=== PATIENT | female | born 1970 | race Hispanic/Latino ===

== ENCOUNTER → 2017-04-10 | Outpatient (CLI) | payer OTHER, MEDICARE | END | disposition home or self-care (01) | LOC: RAH 09:41 | PROVIDERS: ATTEND Internal Medicine Cardiovascular Disease | DX: I10 Essential (primary) hypertension (principal) | CPT/HCPCS: 76770; 93975 ==

== ENCOUNTER 2017-04-26 02:47 | Emergency (ER) | payer OTHER, MEDICARE ==
[2017-04-26] MEDS ORDERED: HYDROCODONE/ACETAMINOPHEN 10/325 MG TAB ONE (03:40)
[2017-04-26] MEDS ORDERED: HYDRALAZINE HCL 25 MG TABLET ONE (03:40)
[2017-04-26 03:41] LABS: BASOPHILS % (AUTO) 0.7 % (0.0-5.0); EOSINOPHILS % (AUTO) 3.1 % (0.0-8.0); HEMATOCRIT 33.4 % (36-48); LYMPHOCYTES % (AUTO) 23.2 % (21.0-51.0); MEAN CORPUSCULAR HGB CONC 34.7 g/dL (32.0-36.0); MEAN CORPUSCULAR VOLUME 83.6 fL (79-99); MONOCYTES % (AUTO) 6.4 % (3.0-13.0); NEUTROPHILS % (AUTO) 66.6 % (40.0-77.0); NUCLEATED RED BLOOD CELLS 0.1 % (0.0-0.19); PLATELET COUNT (AUTO) 254 K/uL (130-400); RED BLOOD CELL COUNT(AUTO) 3.99 MIL/uL (4.00-5.50); RED CELL DISTRIBUTION WIDTH 13.2 % (11.0-15.5); WHITE BLOOD COUNT (AUTO) 12.9 K/uL (4.8-10.8)
[2017-04-26 03:43] LABS: APPEARANCE,URINE Clear (CLEAR); BILIRUBIN,URINE Negative (NEGATIVE); COLOR,URINE Yellow (YELLOW); GLUCOSE, URINE (UA) TRACE mg/dL (NEGATIVE); KETONES,URINE Negative (NEGATIVE); LEUKOCYTE ESTERASE ,URINE Negative (NEGATIVE); NITRATE,URINE Negative (NEGATIVE); OCCULT BLOOD,URINE Negative (NEGATIVE); PH,URINE 6.5 (5.0-8.0); PROTEIN,URINE 300 (NEGATIVE); UROBILINOGEN,URINE 0.2 mg/dL (0.2-1.0)
[2017-04-26 03:48] LABS: AMORPHOUS SEDIMENT,UR Moderate /LPF (None Seen); BACTERIA,URINE Few /HPF (None Seen); MUCUS,URINE Many LPF (None Seen); RBC,URINE 0-1 /HPF (0-1); SQUAMOUS EPITHELIAL CELL,UR Moderate /LPF (0-2); WBC,URINE 0-1 /HPF (0-1)
[2017-04-26 03:53] LABS: CREATININE 2.2 mg/dL (0.5-1.5); POTASSIUM 4.1 mmol/L (3.5-5.1)
[2017-04-26 03:57] LABS: ALBUMIN 2.5 g/dL (3.5-5.0); BILIRUBIN,TOTAL 0.2 mg/dL (0.2-1.0); TOTAL PROTEIN, SERUM 6.4 g/dL (6.0-8.3)
== END 2017-04-26 05:02 | disposition home or self-care (01) ==
LOC: EDH 02:47
DX: R51 Headache (principal); I12.9 Hypertensive chronic kidney disease with stage 1 through stage 4 chronic kidney disease, or unspecified chronic kidney disease; N18.9 Chronic kidney disease, unspecified; J45.909 Unspecified asthma, uncomplicated; Z85.3 Personal history of malignant neoplasm of breast
CPT/HCPCS: 36415; 70450; 80053; 81001; 82550; 84484; 85025; 87804; 93005

== ENCOUNTER → 2017-09-11 | Outpatient (CLI) | payer OTHER, MEDICARE | END | disposition home or self-care (01) | LOC: RAH 15:01 | PROVIDERS: ATTEND Internal Medicine | DX: M54.6 Pain in thoracic spine (principal) | CPT/HCPCS: 72070 ==

== ENCOUNTER → 2018-07-29 | Outpatient (CLI) | payer OTHER, MEDICARE | END | disposition home or self-care (01) | LOC: RAH 13:37 | PROVIDERS: ATTEND Internal Medicine | DX: C50.912 Malignant neoplasm of unspecified site of left female breast (principal) | CPT/HCPCS: 76641 ==

== ENCOUNTER → 2018-10-10 | Outpatient (CLI) | payer OTHER, MEDICARE ==
[~2018-10-10] MED LIST: ALBU18HF7 IH; ASPI-1197 PO; ATOR40TA69 PO; BIMA12.5OS OU; CALC-877 PO; CARV12.580 PO; CHLO50TA PO; CYCL5.5D OU; DOXA4TAB3 PO; DULA0.75 SQ; FERR325T22 PO; FOLI0.4T2 PO; HYDR100T27 PO; INSU100I3 SQ; INSU200I4 SQ; LIDO700A30 TP; LISI40TA4 PO; MUPI22OI2 TP; SULF1TAB42 PO
== END | disposition home or self-care (01) ==
LOC: RAH 07:39
PROVIDERS: ATTEND Internal Medicine
DX: C50.911 Malignant neoplasm of unspecified site of right female breast (principal); Z90.13 Acquired absence of bilateral breasts and nipples
CPT/HCPCS: 77047

== ENCOUNTER → 2020-03-15 | Outpatient (CLI) | payer OTHER | END | disposition home or self-care (01) | LOC: RAH 14:49 | PROVIDERS: ATTEND Internal Medicine Cardiovascular Disease | DX: Z13.6 Encounter for screening for cardiovascular disorders (principal) | CPT/HCPCS: 75571 ==

== ENCOUNTER → 2020-03-17 | Outpatient (CLI) | payer OTHER, MEDICARE | END | disposition home or self-care (01) | LOC: OIH 14:39 | PROVIDERS: ATTEND Internal Medicine Nephrology | DX: J81.1 Chronic pulmonary edema (principal); N18.6 End stage renal disease; E87.79 Other fluid overload; N19 Unspecified kidney failure | CPT/HCPCS: 71046 ==

== ENCOUNTER 2020-05-19 11:25 | Emergency (ER) | payer OTHER, MEDICARE ==
[~2020-05-19 11:25] MED LIST changes: -FOLI0.4T2 PO; +FOLI0.4T6 PO; -LISI40TA4 PO; +LISI40TA9 PO
[2020-05-20] MEDS ORDERED: PHOSLOC PO (22:08)
[2020-05-20] MEDS ORDERED: ACET1TAB25 PO (22:08)
[2020-05-20] MEDS ORDERED: LISI20TA24 PO (22:08)
[2020-05-20] MEDS ORDERED: FOLI0.8T22 PO (22:08)
[2020-05-20] MEDS ORDERED: NYST15CR2 TP (22:08)
[2020-05-20] MEDS ORDERED: FURO40TA5 PO (22:08)
== END 2020-05-19 12:48 | disposition home or self-care (01) ==
LOC: EDH 11:25
DX: I12.0 Hypertensive chronic kidney disease with stage 5 chronic kidney disease or end stage renal disease (principal); E11.22 Type 2 diabetes mellitus with diabetic chronic kidney disease; N18.6 End stage renal disease; R53.1 Weakness; R11.0 Nausea; Z99.2 Dependence on renal dialysis; J45.909 Unspecified asthma, uncomplicated; Z85.3 Personal history of malignant neoplasm of breast; Z98.51 Tubal ligation status; Z98.890 Other specified postprocedural states
CPT/HCPCS: 93005

== ENCOUNTER 2020-05-19 18:20 | Observation (INO) | payer OTHER, MEDICARE ==
[~2020-05-19] VITALS: Ht 157.5 cm; Wt 74.9 kg
[2020-05-19 19:20] LABS: BASOPHILS % (AUTO) 0.4 % (0.0-5.0); EOSINOPHILS % (AUTO) 2.5 % (0.0-8.0); HEMATOCRIT 34.6 % (36-48); LYMPHOCYTES % (AUTO) 25.7 % (21.0-51.0); MEAN CORPUSCULAR HGB CONC 32.7 g/dL (32.0-36.0); MEAN CORPUSCULAR VOLUME 85.9 fL (79-99); MONOCYTES % (AUTO) 7.3 % (3.0-13.0); NEUTROPHILS % (AUTO) 63.7 % (40.0-77.0); NUCLEATED RED BLOOD CELLS 0.4 % (0.0-0.19); PLATELET COUNT (AUTO) 354 K/uL (130-400); RED BLOOD CELL COUNT(AUTO) 4.03 MIL/uL (4.00-5.50); RED CELL DISTRIBUTION WIDTH 15.5 % (11.0-15.5); WHITE BLOOD COUNT (AUTO) 11.3 K/uL (4.8-10.8)
[2020-05-19 19:38] LABS: ALBUMIN 3.7 g/dL (3.5-5.0); BILIRUBIN,TOTAL 0.3 mg/dL (0.2-1.0); POTASSIUM 5.7 mmol/L (3.5-5.1); TOTAL PROTEIN, SERUM 8.1 g/dL (6.0-8.3)
[2020-05-19] MEDS ORDERED: ACETAMINOPHEN 325 MG TAB PO PRN ×2 (22:15)
[2020-05-19] MEDS ORDERED: LACTULOSE 20 GM/30 ML UDCUP PO PRN (22:15)
[2020-05-19] MEDS ORDERED: DiphenhydrAMINE HCL 50 MG/ML VIAL IV PRN (22:15)
[2020-05-19] MEDS ORDERED: DIPHENHYDRAMINE HCL 25 MG CAPSULE PO PRN (22:15)
[2020-05-19] MEDS ORDERED: NITROGLYCERIN 0.4 MG SL TAB SL PRN (22:15)
[2020-05-19] MEDS ORDERED: ONDANSETRON 4MG INJ IV PRN (22:15)
[2020-05-19] MEDS ORDERED: MAG/ALUM/SIMETH 30 ML UDCUP PO PRN (22:15)
[2020-05-19] MEDS ORDERED: GUAIFENESIN-DM 200/20 MG 10 ML PO PRN (22:15)
[2020-05-19] MEDS ORDERED: INSULIN HUMULIN R 100 UNIT/ML 3ML ONE ×2 (22:20→22:37)
[2020-05-19] MEDS ORDERED: 0.9%NACL 50ML 50 ML IV ONE (22:23)
[2020-05-20 06:13] LABS: BASOPHILS % (AUTO) 0.7 % (0.0-5.0); EOSINOPHILS % (AUTO) 2.9 % (0.0-8.0); HEMATOCRIT 36.1 % (36-48); LYMPHOCYTES % (AUTO) 23.8 % (21.0-51.0); MEAN CORPUSCULAR HEMOGLOBIN 28.4 pg (27.0-33.0); MEAN CORPUSCULAR HGB CONC 32.7 g/dL (32.0-36.0); MONOCYTES % (AUTO) 6.8 % (3.0-13.0); NEUTROPHILS % (AUTO) 65.4 % (40.0-77.0); NUCLEATED RED BLOOD CELLS 0.3 % (0.0-0.19); PLATELET COUNT (AUTO) 306 K/uL (130-400); RED BLOOD CELL COUNT(AUTO) 4.15 MIL/uL (4.00-5.50); RED CELL DISTRIBUTION WIDTH 16.2 % (11.0-15.5); WHITE BLOOD COUNT (AUTO) 13.3 K/uL (4.8-10.8)
[2020-05-20 06:35] LABS: ALBUMIN 3.6 g/dL (3.5-5.0); BILIRUBIN,TOTAL 0.3 mg/dL (0.2-1.0); CREATININE 6.6 mg/dL (0.5-1.5); POTASSIUM 4.7 mmol/L (3.5-5.1); TOTAL PROTEIN, SERUM 7.9 g/dL (6.0-8.3)
[2020-05-20 13:08] VITALS: BP 226/118
[2020-05-20] MEDS ORDERED: ACETAMINOPHEN 325 MG TAB ONE (13:18)
[2020-05-20] MEDS ORDERED: HYDRALAZINE 20MG/ML VIAL ONE ×2 (13:18→18:56)
[2020-05-20] MEDS ORDERED: HYDRALAZINE 20MG/ML VIAL IV PRN (13:30)
[2020-05-20 16:00] VITALS: BP 156/62
[2020-05-20] MEDS: FUROSEMIDE 40 MG TABLET PO SCH (17:00)
[2020-05-20] MEDS ORDERED: FUROSEMIDE 40 MG TABLET ONE (18:23)
[2020-05-20] MEDS ORDERED: DEXTROSE 50%-WATER 50 ML DISP.SYRIN IV PRN (19:45)
[2020-05-20] MEDS ORDERED: GLUCAGON 1MG KIT 1 MG ML IM PRN (19:45)
[2020-05-20] MEDS ORDERED: INSULIN HUMULIN R 100 UNIT/ML 3ML ONE (19:51)
[2020-05-20 20:00] VITALS: BP 135/54
[2020-05-20] MEDS: CARVEDILOL 25 MG TABLET PO SCH (21:49)
[2020-05-20] MEDS ORDERED: LISI20TA24 PO (22:08)
[2020-05-20] MEDS ORDERED: NYST15CR2 TP (22:08)
[2020-05-20] MEDS ORDERED: FURO40TA5 PO (22:08)
[2020-05-20] MEDS ORDERED: FOLI0.8T22 PO (22:08)
[2020-05-20] MEDS ORDERED: ACET1TAB25 PO (22:08)
[2020-05-20] MEDS ORDERED: PHOSLOC PO (22:08)
[2020-05-20] MEDS ORDERED: INSULIN HUMULIN R 100 UNIT/ML 3ML SQ SCH (23:00)
[2020-05-20] MEDS ORDERED: INSULIN GLARGINE 100 UNITS/ML 10 ML VIAL SQ SCH (23:00)
[2020-05-20] MEDS: INSULIN HUMULIN R 100 UNIT/ML 3ML SQ SCH (23:16)
[2020-05-21] VITALS: BP 121/59
[2020-05-21 04:00] VITALS: BP 145/74
[2020-05-21 06:05] LABS: BASOPHILS % (AUTO) 0.3 % (0.0-5.0); EOSINOPHILS % (AUTO) 0.9 % (0.0-8.0); HEMATOCRIT 36.6 % (36-48); MEAN CORPUSCULAR HEMOGLOBIN 27.7 pg (27.0-33.0); MEAN CORPUSCULAR VOLUME 86.5 fL (79-99); MONOCYTES % (AUTO) 6.9 % (3.0-13.0); NEUTROPHILS % (AUTO) 79.4 % (40.0-77.0); NUCLEATED RED BLOOD CELLS 0.3 % (0.0-0.19); PLATELET COUNT (AUTO) 309 K/uL (130-400); RED BLOOD CELL COUNT(AUTO) 4.23 MIL/uL (4.00-5.50); RED CELL DISTRIBUTION WIDTH 17.1 % (11.0-15.5); WHITE BLOOD COUNT (AUTO) 14.3 K/uL (4.8-10.8)
[2020-05-21 06:24] LABS: ALBUMIN 3.5 g/dL (3.5-5.0); BILIRUBIN,TOTAL 0.3 mg/dL (0.2-1.0); CREATININE 5.8 mg/dL (0.5-1.5); PHOSPHORUS 6.8 mg/dL (2.5-4.9); POTASSIUM 5.4 mmol/L (3.5-5.1); TOTAL PROTEIN, SERUM 7.8 g/dL (6.0-8.3)
[2020-05-21] MEDS: INSULIN HUMULIN R 100 UNIT/ML 3ML SQ SCH ×6 (06:27→17:28)
[2020-05-21 07:30] VITALS: BP 134/52
[2020-05-21] MEDS ORDERED: LISINOPRIL 20 MG TABLET PO SCH (09:00)
[2020-05-21] MEDS: FUROSEMIDE 40 MG TABLET PO SCH ×2 (09:00→17:22)
[2020-05-21] MEDS: CARVEDILOL 25 MG TABLET PO SCH (09:00)
[2020-05-21 11:00] VITALS: BP 152/69
[2020-05-21 16:00] VITALS: BP 124/69
[2020-05-22 09:12] LABS: HEPATITIS B CORE IGM Negative (Negative); HEPATITIS Bs ANTIGEN SCREEN P Negative (Negative)
== END 2020-05-21 19:00 | disposition home or self-care (01) ==
LOC: EDH 18:20 → EDHIP 22:08 → 3CH 05-20 19:58
PROVIDERS: ADMIT Family Medicine; ATTEND Family Medicine
DX: I12.0 Hypertensive chronic kidney disease with stage 5 chronic kidney disease or end stage renal disease (principal); E11.22 Type 2 diabetes mellitus with diabetic chronic kidney disease; N18.6 End stage renal disease; E87.5 Hyperkalemia; E11.65 Type 2 diabetes mellitus with hyperglycemia; J96.90 Respiratory failure, unspecified, unspecified whether with hypoxia or hypercapnia; J45.909 Unspecified asthma, uncomplicated; M19.90 Unspecified osteoarthritis, unspecified site; G47.30 Sleep apnea, unspecified; Z85.3 Personal history of malignant neoplasm of breast; Z90.13 Acquired absence of bilateral breasts and nipples; Z99.2 Dependence on renal dialysis; Z90.722 Acquired absence of ovaries, bilateral; Z98.51 Tubal ligation status; Z79.4 Long term (current) use of insulin; Z79.899 Other long term (current) drug therapy
CPT/HCPCS: 36415 ×3; 80053 ×3; 80074; 82947; 82948 ×6; 84100; 85025 ×3; 93005; 99283; 99284; G0378 ×40; J0360 ×2; J1815 ×6; 90935

== ENCOUNTER 2020-06-14 13:42 | Emergency (ER) | payer OTHER, MEDICARE ==
[~2020-06-14 13:42] MED LIST changes: +ACET1TAB25 PO; -ASPI-1197 PO; -CALC-877 PO; -CHLO50TA PO; -DOXA4TAB3 PO; -FERR325T22 PO; -FOLI0.4T6 PO; +FOLI0.8T22 PO; +FURO40TA5 PO; -HYDR100T27 PO; +LISI20TA24 PO; -LISI40TA9 PO; -MUPI22OI2 TP; +NYST15CR2 TP; +PHOSLOC PO; -SULF1TAB42 PO
[2020-06-14 14:28] LABS: APPEARANCE,URINE Clear (CLEAR); BILIRUBIN,URINE Negative (NEGATIVE); COLOR,URINE Yellow (YELLOW); GLUCOSE, URINE (UA) 250 mg/dL (NEGATIVE); KETONES,URINE Negative (NEGATIVE); LEUKOCYTE ESTERASE ,URINE Small (NEGATIVE); NITRATE,URINE Negative (NEGATIVE); OCCULT BLOOD,URINE Negative (NEGATIVE); PH,URINE 6.5 (5.0-8.0); PROTEIN,URINE 300 mg/dL (NEGATIVE); UROBILINOGEN,URINE 0.2 mg/dL (0.2-1.0)
[2020-06-14 14:49] LABS: BACTERIA,URINE Few /HPF (None Seen); MUCUS,URINE Moderate LPF (None Seen); RBC,URINE 0-1 /HPF (0-1); SQUAMOUS EPITHELIAL CELL,UR Few /HPF (0-2)
[2020-06-14] MEDS ORDERED: CEFTRIAXONE SODIUM 1 GM ONE (15:07)
[2020-06-14] MEDS ORDERED: LIDOCAINE HCL-MPF 1% 2ML VIAL ONE (15:12)
== END 2020-06-14 16:09 | disposition home or self-care (01) ==
LOC: EDH 13:42
DX: N30.90 Cystitis, unspecified without hematuria (principal); R07.89 Other chest pain; R53.1 Weakness; I12.0 Hypertensive chronic kidney disease with stage 5 chronic kidney disease or end stage renal disease; N18.6 End stage renal disease; J45.909 Unspecified asthma, uncomplicated; Z85.3 Personal history of malignant neoplasm of breast; Z98.890 Other specified postprocedural states; Z98.51 Tubal ligation status; Z99.2 Dependence on renal dialysis
CPT/HCPCS: 70450; 71045; 81001; 87088; 87804 ×2; 93005; 96372; 99285; J0696; J3490

== ENCOUNTER → 2022-01-03 | Outpatient (CLI) | payer OTHER, MEDICARE ==
[~2022-01-03] MED LIST changes: +ACET-2079 PO; -ACET1TAB25 PO; -NYST15CR2 TP; +NYST15CR40 TP
== END | disposition home or self-care (01) ==
LOC: SHCH 07:44
PROVIDERS: ATTEND Internal Medicine Cardiovascular Disease
DX: I25.10 Atherosclerotic heart disease of native coronary artery without angina pectoris (principal); E78.5 Hyperlipidemia, unspecified; I10 Essential (primary) hypertension
CPT/HCPCS: 93306